=== PATIENT | male | born 1960 | race Caucasian/White ===

== ENCOUNTER → 2017-01-16 | Outpatient (CLI) | payer OTHER ==
[~2017-01-16] MED LIST: ALBUTEROL17 GM INH; ASPIRIN81 MG PO; CLARITIN10 M3 PO; COUMADIN7.5 MG PO; DAKIN'S473 M1; GABAPENTIN300 MG PO; GLIPIZIDE10 MG PO; LASIX PO; LISINOPRIL20 MG PO; LISINOPRIL5 MG PO; LORCET HD 10-31 EACH PO; METFORMIN PO; MINIPRESS PO; PERCOCET 10/31 UDTA1 PO; PIOGLITAZONE45 MG PO; REMERON SOLTAB15 M1 PO; SIMVASTATIN20 MG PO; TRAMADOL HCL50 M2 PO; ZYVOX600 MG PO
--- NOTE | ~2017-01-16 | MR113 ---
[facility]. [facility] A Service of [facility] & [facility] RADIOLOGY TEXT RESULTS PATIENT: RAMYA CUNNINGHAM LOCATION: [facility] : 62 UNIT #: [id number] AGE: [address]: Kevin Sanchez MD SEX: M ORDER DR: [id number] [place] [id number] O MR#: [id number] Acc #: [id number] NAME: RAMYA CUNNINGHAM : 1960 SEX: M STUDY DATE/TIME: 01/16/2017 13:16 UNIT: [facility] ROOM: STUDY DESCRIPTION: MR Lumbar Wo Contrast Attending Physician: Kevin Sanchez M.D. Referring Physician: Kevin Sanchez M.D. Ordering Physician: Kevin Sanchez M.D. Primary Care Physician: Kevin Sanchez M.D. MRI CENTER REPORT This report is preliminary unless electronic signature is present. EXAM Lumbar spine MRI without 01/16/2017 HISTORY No known injury or surgery. Patient complains of increasing low back pain from right into bilateral lower extremities, right greater than left for 8 weeks with difficulty walking. COMMENT MRI of the lumbar spine performed without contrast using routine 1.5T wide-bore imaging technique. COMPARISON STUDIES Comparison study is none. FINDINGS There is about 3-4 mm of degenerative retrolisthesis of L5 on S1 with disc desiccation and loss of disc height at the 4-5 and 5-1 levels. Mild type 2 marrow endplate degenerative change at the 5-1 level and probably a large incidental vertebral body hemangioma at L4. Marrow signal intensity is otherwise essentially unremarkable. Conus medullaris terminates at L1 level and is normal. At L1-2, mild facet hypertrophy. No canal or foraminal impingement. At L2-3, mild bilateral facet degenerative change. No canal or foraminal impingement. At L3-4, mild bilateral facet degenerative change. No canal compromise. Mild bilateral inferior foraminal narrowing. At L4-5, moderate bilateral facet degenerative change with fluid in the facet joints bilaterally. There is a mild broad-based posterior disc STS. [facility] A Service of [facility] & [facility] RADIOLOGY TEXT RESULTS PATIENT: RAMYA CUNNINGHAM LOCATION: [facility] : 62 UNIT #: [id number] AGE: [address]: Kevin Sanchez MD SEX: M ORDER DR: bulge with annular fissure. This results in mild flattening of the anterior thecal sac and mass effect on the bilateral-lateral recesses right greater than left. There is some prominence of the posterior epidural fat pad. Overall there is mild stenosis of the thecal sac. There is also approximately moderate foraminal narrowing right greater than left. At L5-S1, mild bilateral facet degenerative change, prominence of the epidural fat pad. There is a broad posterior disc protrusion/extrusion with mild effacement of the anterior thecal sac. There is mass effect on the thecal sac predominantly from the epidural fat. The disc material extends into foramina with some endplate spondylosis and there is moderate foraminal impingement bilaterally. Loss of disc height contributes to this as does the retrolisthesis of 5 on 1. IMPRESSION Multilevel lumbar degenerative changes detailed above with component of epidural lipomatosis. Findings most significant appearing radiographically at the 4-5 and 5-1 levels. See comment. Dictated by... Sandra Lee M.D. THIS IS AN ELECTRONICALLY VERIFIED REPORT Sandra Lee M.D. at 01/19/2017 8:11 AM Hema TD: 01/16/2017 18:11 JOB #: [id number] MRI CENTER REPORT Page 1 of 1
== END | disposition home or self-care (01) ==
LOC: SMRI 12:51
DX: M54.5 Low back pain (principal); M47.816 Spondylosis without myelopathy or radiculopathy, lumbar region; M51.86 Other intervertebral disc disorders, lumbar region; M51.27 Other intervertebral disc displacement, lumbosacral region; M47.817 Spondylosis without myelopathy or radiculopathy, lumbosacral region; M43.17 Spondylolisthesis, lumbosacral region
CPT/HCPCS: 72148

== ENCOUNTER → 2017-01-21 | Outpatient (CLI) | payer OTHER ==
--- NOTE | ~2017-01-21 | US136 ---
[facility] A Service of [facility] & [facility] RADIOLOGY TEXT RESULTS PATIENT: RAMYA CUNNINGHAM LOCATION: [facility] : 62 UNIT #: [id number] AGE: [address]: Kevin Sanchez MD SEX: M ORDER DR: [id number] [facility] [address] [place], [place] [address] [id number] O MR#: [id number] Acc #: [id number] NAME: RAMYA CUNNINGHAM : 1960 SEX: M STUDY DATE/TIME: 01/21/2017 14:20 UNIT: [facility] ROOM: STUDY DESCRIPTION: U/L Ext Art Study [facility] Bil Attending Physician: Kevin Sanchez M.D. Referring Physician: Kevin Sanchez M.D. Ordering Physician: Kevin Sanchez M.D. Primary Care Physician: Kevin Sanchez M.D. MEDICAL IMAGING REPORT This report is preliminary unless electronic signature is present EXAM Bilateral ankle-brachial indices HISTORY Bilateral lower extremity claudication for one year. FINDINGS Brachial pressure is 150 mmHg on the right and 159 on the left. Ankle pressure on the right is 192 mmHg in the posterior tibial but on the left is nonocclusive. Normal triphasic waveforms are seen bilaterally. Normal digital pressures in both feet. IMPRESSION Right ankle-brachial index 1.21, left nondiagnostic as the vessels could not be occluded. This suggests an element of arteriosclerosis which may over-estimate pressures but normal triphasic waveforms are seen in both ankles and normal digital pressures are seen in the great toes bilaterally. Dictated by... Juanito Del Angel M.D. THIS IS AN ELECTRONICALLY VERIFIED REPORT Juanito Del Angel M.D. at 01/22/2017 2:58 PM TRACY/armand TD: 01/22/2017 09:25 JOB #: [id number] MEDICAL IMAGING REPORT Page 1 of 1 COPY
== END | disposition home or self-care (01) ==
LOC: CNIV 14:10
DX: I73.9 Peripheral vascular disease, unspecified (principal); R60.0 Localized edema
CPT/HCPCS: 93922

== ENCOUNTER 2017-04-06 22:02 | Inpatient (IN) | payer OTHER ==
--- NOTE | ~2017-04-06 | OR ---
Unit #: [id number] #: [id number] Patient: RAMYA CUNNINGHAM [id number] [address] [place], [place] [address] [id number] Jamie MR#: [id number] NAME: RAMYA CUNNINGHAM ROOM: 474 Date of Procedure: 04/07/2017 Admission Date: 04/07/2017 Surgeon: Michele Ch M.D. : 1960 Attending Physician: Shell Waldrop M.D. Primary Care Physician: Kevin Sanchez M.D. OPERATIVE REPORT PREOPERATIVE DIAGNOSIS Left medial thigh abscess with associated necrosis and exudate. POSTOPERATIVE DIAGNOSIS Left medial thigh abscess with associated necrosis and exudate. PROCEDURES PERFORMED Incision and drainage with aerobic and anaerobic cultures taken, followed by sharp excisional debridement of a 4 x 2.5 cm area extending down into the deep subcutaneous tissue. ANESTHESIA General endotracheal anesthesia. ESTIMATED BLOOD LOSS 40 mL. INDICATIONS FOR PROCEDURE Mr. Presley is a morbidly obese, diabetic with a history of MRSA skin infections, who presented with an abscess and associated cellulitis in the left medial thigh. This has been going on for almost two weeks at home and in the central portion of the abscess, he had a necrotic area with associated exudate. From this area, I could express gross purulent drainage. From this drainage, the cultures were taken. DESCRIPTION OF PROCEDURE The patient was transported from his hospital room to the operating room, and after induction of general endotracheal anesthesia, he was placed in a frog-leg position and the cultures were taken before prepping and draping the patient. He was then prepped and draped in usual sterile fashion. The central necrotic area was able to be debrided and the abscess cavity was probed and the extent of it identified. A wedge excision to remove all the nonviable tissue was performed. I dissected down into the deep subcutaneous tissue and excised en bloc and sent to the laboratory. The patient has a history of Plavix and aspirin use at home and was given Lovenox upon admission. Hemostasis was difficult, but obtained. The wound was packed with dressing, sponges soaked in Betadine, and then the wound was closed over the dressing, sponges to help effect further hemostasis with 2-0 Vicryl interrupted sutures. ABD pads, followed by Kerlix and Christian wrap were placed as dressing. Sponges and needle counts were correct x3. The patient tolerated the procedure well, was transported to recovery in stable condition. No family was available at Unit #: [id number] #: [id number] Patient: RAMYA CUNNINGHAM the end the case. Dictated by... Nava Ga/valentin TD: 04/07/2017 17:32 JOB #: [id number] OPERATIVE REPORT Page 1 of 1 X Michele Ch MD PROCEDURE OPERATIVE NOTE
--- NOTE | ~2017-04-06 | CO ---
Unit #: [id number] #: [id number] Patient: RAMYA CUNNINGHAM [id number] [address] [place], [place] [address] [id number] I MR#: [id number] NAME: RAMYA CUNNINGHAM ROOM: 474 Age: 56 Sex: M Admission Date: 04/07/2017 : 1960 Attending Physician: Shell Waldrop M.D. Primary Care Physician: Kevin Sanchez M.D. CONSULTATION REPORT HISTORY AND EXAM 56-year-old gentleman with a history of diabetes, presents with progressive abscess on the left medial thigh. He states that there was a small "pimple" in the left medial thigh about two weeks ago that he was squeezing and, over the last week or so, it has progressed with redness, swelling and discomfort. There has been some partial spontaneous drainage of purulent material in the central portion. This now has about a 3 x 2 cm area of necrosis and exudate. I cannot express any more purulent drainage but he does have significant cellulitis. He also has a history of MRSA skin infections in the past. He has had no fevers or chills. PAST MEDICAL HISTORY 1. Osteoarthritis. 2. Morbid obesity. 3. MRSA skin infections. 4. Type 2 diabetes. 5. Asthma. 6. History of a PE in 2005. 7. Hypertension. 8. Reflux. 9. Diverticulitis, status post partial colectomy. 10. Allergic rhinitis. 11. Obstructive sleep apnea. 12. He has had previous abscesses drained. 13. Incisional hernia repair with mesh. 14. Left knee arthroscopy. 15. Umbilical hernia repair. ALLERGIES No allergy to medication. MEDICATIONS His home medications are: 1. Metformin. 2. Lisinopril. 3. Lasix. 4. Glipizide. 5. Aspirin. 6. Prazosin. 7. Simvastatin. 8. Mirtazapine. 9. Gabapentin. FAMILY HISTORY Unit #: [id number] #: [id number] Patient: RAMYA CUNNINGHAM Breast cancer, cervical cancer, osteoarthritis, diabetes. SOCIAL HISTORY Denies the use of alcohol or drugs or tobacco. REVIEW OF SYSTEMS Otherwise noncontributory. PHYSICAL EXAMINATION VITAL SIGNS: Temperature is 97.6, pulse 87, respirations 18, blood pressure 116/72. GENERAL: Awake, alert and oriented, in no acute distress. HEENT: Unremarkable. CARDIAC: Regular rhythm. LUNGS: Clear. ABDOMEN: Soft. EXTREMITIES: Left medial thigh - he has an abscess with cellulitis as described. NEUROLOGICAL: Grossly intact. No other skin abscesses or lesions. DIAGNOSTIC STUDIES LABORATORY: Chemistry showed glucose of 372, BUN is 28 and creatinine 2.3. His previous baseline creatinine as between 1.1 and 1.3. Electrolytes otherwise unremarkable. Liver chemistry is normal. Lactic acid 1.9. Beta-hydroxybutyrate 0.38. INR 1.0. White count 8500 with normal differential. Hemoglobin 13.2, platelets 144,000. ASSESSMENT AND PLAN 56-year-old morbidly obese gentleman with diabetes and a history of methicillin resistant Staph aureus skin infections, presents with a left medial thigh abscess that has been present over the last two weeks. It is partially spontaneously drained but there is a central portion of necrosis and exudate that will need incision, drainage and debridement to facilitate healing. There is no evidence of Eyad gangrene on examination. I discussed the procedure with the patient including risks, benefits and complications, postoperative expectations including dressing changes. He understands and agrees to proceed. Dictated by... Michele Ch M.D. ADRIA/matt TD: 04/07/2017 08:32 JOB #: [id number] Unit #: [id number] #: [id number] Patient: RAMYA CUNNINGHAM CONSULTATION REPORT Page 1 of 1 X Michele Ch MD CONSULTATION REPORT
--- NOTE | ~2017-04-06 | EKG ---
PATIENT: RAMYA CUNNINGHAM UNIT #: [id number] Ventricular Rate: 76 BPM Atrial Rate: 76 BPM P-R Interval: 190 ms QRS Duration: 94 ms Q-T Interval: 408 ms QTC Calculation(Bezet): 459 ms P Shipman: 47 degrees Calculated R Shipman: 9 degrees Calculated T Shipman: 33 degrees Diagnosis Line: Normal sinus rhythm Diagnosis Line: Normal ECG Diagnosis Line: When compared with ECG of 24-MAR-2016 09:05, Diagnosis Line: No significant change was found Diagnosis Line: Confirmed by DESI FRAUSTO MD ([id number]) on Diagnosis Line: 04/08/2017 10:51:43 AM INTERPRETING AMBIKA CARTY
--- NOTE | ~2017-04-06 | DS ---
Unit #: [id number] #: [id number] Patient: RAMYA CUNNINGHAM [id number] [address] [address] [id number] I MR#: [id number] NAME: RAMYA CUNNINGHAM ROOM: [facility] Age: 56 Sex: M Admission Date: 04/07/2017 : 1960 Discharge Date: 04/08/2017 Attending Physician: Shell Waldrop M.D. Primary Care Physician: Kevin Sanchez M.D. DISCHARGE SUMMARY DISCHARGE DIAGNOSES 1. Left thigh abscess and cellulitis, likely methicillin-resistant Staphylococcus aureus. 2. History of right thigh abscess in the past with methicillin-resistant Staphylococcus aureus. Patient was on intravenous antibiotics in the past. 3. Diabetes mellitus type 2, uncontrolled. 4. Acute kidney injury, likely prerenal. 5. Hypertension. 6. Morbid obesity. 7. History of postoperative pulmonary embolism in 2005. 8. Hyponatremia due to hypovolemia and sodium deficiency. 9. Hypocalcemia. 10. Mild transaminitis. 11. Sepsis, present on admission. 12. Obstructive sleep apnea. CONSULTATIONS LSA. PROCEDURES Patient had incision and drainage of the left thigh abscess. Patient has associated necrosis and exudate. DIAGNOSTIC STUDIES LABORATORY DATA: Glucose 321. Blood cultures negative. Wound cultures are growing Gram-positive cocci in chains and clusters. Urinalysis shows no infection and urinalysis negative for ketones. ALLERGIES None. DISCHARGE MEDICATIONS 1. Neurontin 300 p.o. b.i.d. 2. Mirtazapine 15 mg p.o. daily. 3. Metformin 1000 p.o. b.i.d. 4. Simvastatin 20 p.o. daily. 5. Lisinopril 20 p.o. daily. 6. Minipress 1mg p.o. q.h.s. 7. Aspirin 81 daily. 8. [place] 10 mg q.6 h. p.r.n. pain. 9. Dakin's 1/8 Solution apply topically daily p.r.n. 10. Glipizide 10 mg p.o. daily before breakfast. Unit #: [id number] #: [id number] Patient: RAMYA CUNNINGHAM 11. Zyvox 600 mg p.o. b.i.d. for 14 days. HOSPITALIZATION COURSE This is a 56-year-old admitted because of left thigh abscess. Left thigh abscess with mild necrosis and cellulitis. The patient was seen by surgeon. Patient had I/D. Patient was started on IV Zyvox and Zosyn. Cultures are growing Gram-positive cocci in clusters, likely MRSA. Patient will be discharged on Zyvox for two weeks; upper caser to check for rock. He did have history of MRSA and he was on IV vancomycin for his right thigh abscess in the past. Diabetes mellitus type 2, uncontrolled. Patient received insulin. Continue with his metformin and glipizide at home. Hypertension, uncontrolled. Morbid obesity secondary to calories, continue the low calorie diet. Hypovolemic hyponatremia, better. Acute kidney injury, prerenal, likely from lisinopril and Lasix which was on hold. Patient received IV fluids. Currently creatinine is stable. Hold Lasix and continue the lisinopril as his blood pressure is high. History of PE, stable. DISPOSITION Discharge home. FOLLOWUP 1. Follow with family physician in one-week's time. 2. CBC and CMP in seven-days' time. Follow with family physician with results. NOTE senior account manager to help him with his Zyvox prescriptions. Discharge time taken is 31 minutes. Dictated by... Nava Cunningham/vadim TD: 04/08/2017 21:04 JOB #: [id number] Unit #: [id number] #: [id number] Patient: RAMYA CUNNINGHAM DISCHARGE SUMMARY Page 1 of 1 X Shell Waldrop MD X DISCHARGE SUMMARY
--- NOTE | ~2017-04-06 | HP ---
Unit #: [id number] #: [id number] Patient: RAMYA CUNNINGHAM [id number] [address] [place], [place] [address] [id number] I MR#: [id number] NAME: RAMYA CUNNINGHAM ROOM: [facility] Age: 56 Sex: M Admission Date: 04/07/2017 : 1960 Attending Physician: Luh Richards M.D. Primary Care Physician: Kevin Sanchez M.D. HISTORY AND PHYSICAL CHIEF COMPLAINT Left thigh abscess and cellulitis. HISTORY OF PRESENT ILLNESS This pleasant 56-year-old male with AODM, history of MRSA, hypertension is admitted for a left thigh abscess and cellulitis. The patient states that he was well until two weeks prior to admission when he developed increasing pain and swelling left medial thigh. He attempted to manipulate a lesion and his symptoms worsened. Redness is now extending into the perineal area and he is experiencing some tenderness in the left testicle along with diaphoresis. He presents to this emergency department where he is tachycardiac with acute kidney injury and a serum glucose of 544. An attempt was made to drain the area in the ER but no purulent material was obtained. The patient was given 900 mg of IV clindamycin, a liter of saline and eight units of IV Novolin. PAST MEDICAL HISTORY 1. DJD. 2. MRSA abscesses requiring I and D. 3. AODM with peripheral neuropathy. 4. Asthma. 5. Postop PE in 2005. 6. Essential hypertension. 7. GERD. 8. History of diverticulitis requiring partial colon resection. 9. Allergic rhinitis. 10. History of obstructive sleep apnea. 11. Incisional hernia repair with mesh. 12. Left knee arthroscopic surgery and right total hip replacement. 13. Umbilical hernia repair. SOCIAL HISTORY The patient lives alone. He is a lifelong nonsmoker, occasionally drinks alcohol. FAMILY HISTORY Breast cancer, cervical cancer, DJD. ALLERGIES No known drug allergies. HOME MEDICATIONS 1. Metformin 1,000 mg b.i.d. Unit #: [id number] #: [id number] Patient: RAMYA CUNNINGHAM 2. Lisinopril 20 mg daily. 3. Lasix 20 mg daily. 4. Glipizide. 5. Aspirin 81 mg daily. 6. Prazosin for nightmares 1 mg q.h.s. 7. Zocor 20 mg daily. 8. Remeron 15 mg q.h.s. 9. Neurontin 300 mg t.i.d. REVIEW OF SYSTEMS Notable for cellulitis. Pain left medial thigh now radiating to the left testicle. DJD, MRSA, diabetes, neuropathy, asthma, PE, hypertension, GERD, diverticulitis, obstructive sleep apnea and above-mentioned surgeries. All other systems were reviewed and otherwise negative. PHYSICAL EXAMINATION GENERAL APPEARANCE: A pleasant, obese, 56-year-old male currently in no acute distress. VITAL SIGNS: Temperature 97.6. Pulse 124. Respirations 16. Blood pressure 103/69. O2 saturation 96% on room air. HEENT: Eyes: PERRLA. Extraocular muscles are intact. Pharynx is benign. NECK: Supple without adenopathy or thyromegaly. CHEST: Clear. CARDIAC: Normal S1, S2 without S3, S4 or murmur. ABDOMEN: Bowel sounds are present. No hepatosplenomegaly, tenderness or masses. EXTREMITIES: Without edema. There is obvious cellulitis of the left medial thigh and a lesion in the left middle thigh which radiates to the left scrotal region. NEUROLOGIC: The patient is awake, alert, oriented. His cranial nerves are intact. He has equal strength throughout. DIAGNOSTIC STUDIES LABORATORY: Hematocrit 42.3, normal white count, platelet count. SMA-12: Glucose 544, BUN 29, creatinine 2.6 up from a BUN of 21, creatinine 1.3, 2016. Urinalysis not yet been obtained. ASSESSMENT 1. Left thigh abscess and cellulitis with history of MRSA rule out early Eyad's. 2. Uncontrolled type 2 diabetes mellitus. 3. Acute kidney injury. 4. Hypertension. 5. History of MRSA. 6. History of postop PE 2005. 7. GERD. PLAN 1. Aggressive IV fluids, check post void residual on urinalysis with repeat labs in the morning as well. 2. Diabetic control. 3. Zyvox and Zosyn for now. We will continue clindamycin until early Eyad's can be totally occluded. 4. [facility] to see. 5. DVT prophylaxis. Dictated by Unit #: [id number] #: [id number] Patient: CLAYTONMUSTAPHARAMYANava Azevedo/amadou TD: 04/07/2017 06:23 JOB #: [id number] HISTORY AND PHYSICAL Page 1 of 1 X Luh Richards MD HISTORY AND PHYSICAL
--- NOTE | ~2017-04-06 | BMI ---
[facility] Nutrition Therapy DATE: 04/08/17 Patient: RAMYA CUNNINGHAM Physician: JAMEEL Address: [address] [place] [address] Room/Bed: [address] [place] [address], Zip: [place] [address] Admit Date: 04/07/17 Date of : [birth year] Height: 5 10 Weight: 330 149.68 HIGH BMI NOTE: ANTHROPOMETRICS: HT: 5'10" WT: 149.6 KG BMI: 47.4 DIET: CONSISTENT CARBOHYDRATE RECOMMENDATIONS: 1. CONTINUE CURRENT DIET AND ADD HEART HEALTHY RESTRICTION TO PROMOTE GRADUAL WEIGHT LOSS TOWARDS A HEALTHY BMI RANGE. Respectfully, PEDRO TROTTER RD, LD [employer] and Nutrition[facility] cc: client file
[~2017-04-06 22:02] MED LIST changes: -ASPIRIN81 MG PO; -DAKIN'S473 M1; -GABAPENTIN300 MG PO; -GLIPIZIDE10 MG PO; -LASIX PO; -LISINOPRIL20 MG PO; -LORCET HD 10-31 EACH PO; -MINIPRESS PO; -REMERON SOLTAB15 M1 PO; -SIMVASTATIN20 MG PO; -ZYVOX600 MG PO
[2017-04-07 01:28] LABS: BASOPHIL# 0.1 X10e3 (0-0.3); BASOPHIL% 0.6 % (0-2.5); EOSINOPHIL# 0.1 X10e3 (0-0.7); EOSINOPHIL% 1.2 % (0.0-7.0); HEMATOCRIT 42.3 % (38.0-50.0); HEMOGLOBIN 13.9 gm/dL (13.0-16.0); LYMPHOCYTE# 1.6 X10e3 (1.0-3.5); LYMPHOCYTE% 16.1 % (17.0-45.0); MEAN CELL VOLUME 98.2 FL (83-96); MEAN CORPUSCULAR HEMOGLOBIN 32.3 PG (28-34); MEAN CORPUSCULAR HGB CONC 32.9 g/dL (30-36); MEAN PLATELET VOLUME 9.3 FL (6.5-11.5); MONOCYTE% 10.2 % (3.0-12.0); NEUTROPHIL# 6.9 X10e3 (1.5-7.1); NEUTROPHIL% 71.9 % (40-75); PLATELET COUNT 157 X10e3 (140-420); RED BLOOD COUNT 4.31 X10e (3.90-5.60); RED CELL DISTRIBUTION WIDTH 12.4 % (11.0-15.5); WHITE BLOOD COUNT 9.6 X10e3 (4.0-10.5)
[2017-04-07 01:29] LABS: DIFF IND NO
[2017-04-07 01:54] LABS: ALBUMIN SERUM 3.8 g/dL (3.5-5.0); BILIRUBIN, DIRECT 0.2 mg/dL (0.0-0.2); BILIRUBIN,INDIRECT 0.8 mg/dL (0.0-0.9); BUN/CREATININE RATIO 11.15; CALCIUM SERUM 8.9 mg/dL (8.4-10.2); CREATININE SERUM 2.6 mg/dL (0.6-1.4); GLOM FILT RATE Estimated 26.6 mL/min (>60); POTASSIUM 4.5 mmol/L (3.5-5.1); PROTEIN TOTAL SERUM 6.8 g/dL (6.0-8.3)
[2017-04-07 05:46] LABS: BASOPHIL% 0.4 % (0-2.5); EOSINOPHIL# 0.2 X10e3 (0-0.7); EOSINOPHIL% 2.1 % (0.0-7.0); HEMATOCRIT 40.2 % (38.0-50.0); HEMOGLOBIN 13.2 gm/dL (13.0-16.0); LYMPHOCYTE# 1.7 X10e3 (1.0-3.5); LYMPHOCYTE% 19.8 % (17.0-45.0); MEAN CELL VOLUME 97.5 FL (83-96); MEAN CORPUSCULAR HEMOGLOBIN 32.1 PG (28-34); MEAN CORPUSCULAR HGB CONC 32.9 g/dL (30-36); MEAN PLATELET VOLUME 9.1 FL (6.5-11.5); MONOCYTE# 0.9 X10e3 (0-1.0); MONOCYTE% 10.7 % (3.0-12.0); NEUTROPHIL# 5.7 X10e3 (1.5-7.1); PLATELET COUNT 144 X10e3 (140-420); RED BLOOD COUNT 4.12 X10e (3.90-5.60); RED CELL DISTRIBUTION WIDTH 12.7 % (11.0-15.5); WHITE BLOOD COUNT 8.5 X10e3 (4.0-10.5)
[2017-04-07 05:48] LABS: DIFF IND NO
[2017-04-07 05:59] LABS: PARTIAL THROMBOPLASTIN TIME 24.9 SECONDS (23.5-31.3); PROTHROMBIN TIME (PATIENT) 10.6 SECONDS (10.0-11.7)
[2017-04-07 06:13] LABS: BUN/CREATININE RATIO 12.17; CALCIUM SERUM 8.4 mg/dL (8.4-10.2); CREATININE SERUM 2.3 mg/dL (0.6-1.4); GLOM FILT RATE Estimated 30.8 mL/min (>60)
[2017-04-07] MEDS ORDERED: METFORMIN PO (16:47)
[2017-04-07] MEDS ORDERED: LISINOPRIL20 MG PO (16:48)
[2017-04-07] MEDS ORDERED: LASIX PO (16:48)
[2017-04-07] MEDS ORDERED: ASPIRIN81 MG PO (17:00)
[2017-04-07] MEDS ORDERED: GLIPIZIDE10 MG PO (17:00)
[2017-04-07] MEDS ORDERED: MINIPRESS PO (17:01)
[2017-04-07] MEDS ORDERED: SIMVASTATIN20 MG PO (17:02)
[2017-04-07] MEDS ORDERED: REMERON SOLTAB15 M1 PO (17:02)
[2017-04-07] MEDS ORDERED: GABAPENTIN300 MG PO (17:03)
[2017-04-08 04:17] LABS: HEMATOCRIT 37.4 % (38.0-50.0); HEMOGLOBIN 12.3 gm/dL (13.0-16.0); MEAN CELL VOLUME 97.7 FL (83-96); MEAN CORPUSCULAR HEMOGLOBIN 32.1 PG (28-34); MEAN CORPUSCULAR HGB CONC 32.8 g/dL (30-36); MEAN PLATELET VOLUME 8.9 FL (6.5-11.5); RED BLOOD COUNT 3.83 X10e (3.90-5.60); RED CELL DISTRIBUTION WIDTH 12.6 % (11.0-15.5)
[2017-04-08 04:43] LABS: ALBUMIN SERUM 3.1 g/dL (3.5-5.0); BILIRUBIN,TOTAL 0.4 mg/dL (0.2-2.0); BUN/CREATININE RATIO 16.66; CALCIUM SERUM 7.6 mg/dL (8.4-10.2); CREATININE SERUM 1.2 mg/dL (0.6-1.4); GLOM FILT RATE Estimated 67.7 mL/min (>60); MAGNESIUM 1.7 mg/dL (1.6-3.0); POTASSIUM 4.1 mmol/L (3.5-5.1); PROTEIN TOTAL SERUM 5.9 g/dL (6.0-8.3)
[2017-04-08 06:37] LABS: URINE APPEARANCE CLEAR; URINE BILIRUBIN NEG (NEG); URINE BLOOD TRACE (NEG); URINE COLOR YELLOW; URINE GLUCOSE >1000 MG/DL (NEG); URINE KETONE NEG (NEG); URINE LEUKOCYTE ESTERASE NEG (NEG); URINE NITRATE NEG (NEG); URINE PH 5.5 (5-8); URINE PROTEIN 1+ (NEG); URINE SPECIFIC GRAVITY 1.016 (1.003-1.035); URINE UROBILINOGEN 0.2 MG/DL (NEG)
[2017-04-08 06:40] LABS: URBCS1 AUWI 0-2 /[HPF] (0-2); URINE BACTERIA AUWI NEG (NEGATIVE); URINE SQUAMOUS EPITHELIAL CELL NONE SEEN /[HPF]; UWBCS1 AUWI 0-2 (0-5)
[2017-04-08] MEDS ORDERED: LORCET HD 10-31 EACH PO (15:42)
[2017-04-08] MEDS ORDERED: DAKIN'S473 M1 (15:43)
[2017-04-08] MEDS ORDERED: ZYVOX600 MG PO (15:48)
== END 2017-04-08 17:35 | disposition home or self-care (01) | DRG 854 ==
LOC: CED 22:02 → CEDOF 04-07 03:40 → C4C 04-07 03:40 → CED 04-07 04:01 → CEDOF 04-07 04:01 → C4C 04-07 06:23
PROVIDERS: Emergency Medicine; Internal Medicine; Specialist
PROC: 0JBP0ZZ Excision of Left Lower Leg Subcutaneous Tissue and Fascia, Open Approach (ICD-10-PCS; principal; 2017-04-07 17:00)
DX: A41.9 Sepsis, unspecified organism (principal); N17.9 Acute kidney failure, unspecified; E11.42 Type 2 diabetes mellitus with diabetic polyneuropathy; E11.65 Type 2 diabetes mellitus with hyperglycemia; L02.419 Cutaneous abscess of limb, unspecified; Z68.42 Body mass index [BMI] 45.0-49.9, adult; E87.1 Hypo-osmolality and hyponatremia; L03.116 Cellulitis of left lower limb; I10 Essential (primary) hypertension; E66.01 Morbid (severe) obesity due to excess calories; Z86.711 Personal history of pulmonary embolism; E83.51 Hypocalcemia; G47.33 Obstructive sleep apnea (adult) (pediatric); F17.210 Nicotine dependence, cigarettes, uncomplicated; M19.90 Unspecified osteoarthritis, unspecified site; Z79.82 Long term (current) use of aspirin; Z79.84 Long term (current) use of oral hypoglycemic drugs; J45.909 Unspecified asthma, uncomplicated; Z80.3 Family history of malignant neoplasm of breast
CPT/HCPCS: 36415; 80048; 80053; 80076; 81003; 82010; 82947; 83605; 83735; 84100; 85025; 85027; 85610; 85730; 87040; 87070; 87075; 87077; 87086; 87205; 88304; 88312; 93005; 96361; 96365; 99285; J1650; J1815; J2020; J2250; J2270; J2405; J2543; J3010